=== PATIENT | male | born 1970 | race Caucasian/White ===

== ENCOUNTER 2019-03-02 13:51 | Emergency (ER) | payer SELFPAY ==
[~2019-03-02] VITALS: Ht 180.3 cm; Wt 84.8 kg
[2019-03-02 13:58] VITALS: Ht 180.3 cm; Wt 84.8 kg
[2019-03-02 15:37] VITALS: BP 140/78
== END 2019-03-02 15:37 | disposition home or self-care (01) ==
LOC: ED 13:51
DX: L02.31 Cutaneous abscess of buttock (principal)
CPT/HCPCS: J2001

== ENCOUNTER 2019-03-04 14:35 | Emergency (ER) | payer SELFPAY ==
[~2019-03-04] VITALS: Ht 180.3 cm; Wt 85.3 kg
[2019-03-04 14:38] VITALS: Ht 180.3 cm; Wt 85.3 kg
[2019-03-04 15:22] VITALS: BP 131/78
== END 2019-03-04 15:22 | disposition home or self-care (01) ==
LOC: ED 14:35
DX: M54.5 Low back pain (principal); Z48.01 Encounter for change or removal of surgical wound dressing